=== PATIENT | male | born 1950 | race African-American/Black ===

== ENCOUNTER 2020-01-09 18:48 | Emergency (ER) | payer OTHER ==
[2020-01-09 19:40] LABS: Basophils % 0.5 % (0-1.3); Hematocrit 35.4 % (39.6-49.0); Lymphocytes % 24.2 % (15.3-44.8); MPV 8.1 fL (7.6-11.3)
[2020-01-09 19:43] LABS: Protime INR 1.13
[2020-01-09] MEDS ORDERED: THIAMINE 200 MG/2 ML INJ ONE (20:01)
[2020-01-09] MEDS ORDERED: NA CHLORIDE 0.9% 1,000 ML ONE (20:01)
--- NOTE | 2020-01-09 20:05 | RAD REPORT ---
EXAM DESCRIPTION: CT - Head Brain Wo Cont - 01/09/2020 7:58 pm CLINICAL HISTORY: Alteration of awareness/confusion COMPARISON: None TECHNIQUE: Computed axial tomography of the head was obtained. IV contrast was not requested. All CT scans are performed using dose optimization technique as appropriate and may include automated exposure control or mA/KV adjustment according to patient size. FINDINGS: An intracranial bleed is not seen . The ventricles are normal in caliber. No extra-axial fluid collection is noted. Mild to moderate low-density areas within periventricular, deep and subcortical white matter likely r epresent ischemic changes secondary to small vessel disease. Fluid within the sinuses/ mastoids is not seen. IMPRESSION: No acute intracranial abnormality is seen. If patient's symptoms persist MRI of the bra in would be recommended.
[2020-01-09 20:07] LABS: ALT/SGPT 12 U/L (12-78); AST/SGOT 9 U/L (15-37); Albumin 2.9 g/dL (3.4-5.0); Alkaline Phosphatase 82 U/L (45-117); BUN Blood Urea Nitrogen 12 mg/dL (7-18); Bicarbonate 24 mmol/L (21-32); Bilirubin Direct < 0.1 mg/dL (0-0.2); Bilirubin Total 0.3 mg/dL (0.2-1.0); Glucose Level 173 mg/dL (74-106); Potassium 3.3 mmol/L (3.5-5.1); Protein, Total 6.2 g/dL (6.4-8.2); Sodium Level 141 mmol/L (136-145)
[2020-01-09 20:13] LABS: NT PRO-BNP 115 pg/mL (<125); Troponin (Emerg Dept Use Only) < 0.02 ng/mL (0.0-0.045)
--- NOTE | 2020-01-09 20:44 | ER ---
Nurse's Notes [facility] Name: Paul Khan Age: 69 yrs Sex: Male : 1950 Arrival Date: 01/09/2020 Time: 18:52 Bed 2 Private MD: Diagnosis: Weakness;Hypokalemia;Type 2 diabetes mellitus;Abuse of non-psychoactive substances;Syncope and collapse Presentation: 01/08 19:00 Chief complaint: EMS states: Pt was down on ground in ditch when EMS got on scene, jl7 started feeling bad after taking a hit of synthetic marijuana. Coronavirus screen: Client denies travel out of the [place] in the last 14 days. At this time, the client does not indicate any symptoms associated with coronavirus-19. Ebola Screen: No symptoms or risks identified at this time. Initial Sepsis Screen: Does the patient meet any 2 criteria? No. Patient's initial sepsis screen is negative. Does the patient have a suspected source of infection? No. Patient's initial sepsis screen is negative. Risk Assessment: Do you want to hurt yourself or someone else? Patient reports no desire to harm self or others. Onset of symptoms was January 09, 2020. Care prior to arrival: Medication(s) given: Normal saline infusion, 500 mL, IV initiated. 20 GA, in the left forearm, Glucose check: 170. 19:00 [place] [id number] 19:00 Acuity: TEDDY 3 jl7 Triage Assessment: 19:04 General: Appears in no apparent distress. uncomfortable, Behavior is calm, cooperative, jl7 drowsy. Pain: Denies pain. Historical: - Allergies: 19:04 No Known Allergies; jl7 - Home Meds: 19:04 Metformin Oral [Active]; jl7 - PMHx: 19:04 Diabetes - NIDDM; Hypertension; jl7 - Immunization history:: Adult Immunizations unknown. - Social history:: Smoking status: Patient reports the use of cigarette tobacco products, smokes one-half pack cigarettes per day, Patient uses street drugs, Synthetic Marijuana . - Family history:: not pertinent. Screenin:22 Abuse screen: Denies threats or abuse. Denies injuries from another. Nutritional rr5 screening: No deficits noted. Tuberculosis screening: No symptoms or risk factors identified. Fall Risk IV access (20 points). Gait- Weak (10 pts.). Total Watkins Fall Scale indicates Low Risk Score (25-44 pts). Fall prevention measures have been instituted. Side Rails Up X 2 Placed close to Nursing Station Frequent Obs/Assesments occuring As available Patient and Family Educated on Fall Prevention Program and strategies. Assessment: 19:21 General: Appears in no apparent distress. comfortable, Behavior is calm, cooperative, rr5 appropriate for age. Pain: Denies pain. Neuro: Level of Consciousness is awake, obeys commands, drowsy. Oriented to person, place, time, situation. Cardiovascular: Respiratory: Airway is patent Respiratory effort is even, unlabored, Respiratory pattern is regular, symmetrical. GI: No signs and/or symptoms were reported involving the gastrointestinal system. : No signs and/or symptoms were reported regarding the genitourinary system. EENT: No signs and/or symptoms were reported regarding the EENT system. Derm: Skin is intact, is healthy with good turgor, Skin temperature is warm. Musculoskeletal: Circulation, motion, and sensation intact. Capillary refill < 3 seconds. 20:50 Reassessment: Patient appears in no apparent distress at this time. Patient is alert, rr5 oriented x 3, equal unlabored respirations, skin warm/dry/pink. snacks given with good appetite Patient states symptoms have improved. 21:05 Reassessment: spoke to mitesh sweeney [phone] to arrange a ride ging home. rr5 21:51 Reassessment: Patient appears in no apparent distress at this time. Patient is alert, rr5 oriented x 3, equal unlabored respirations, skin warm/dry/pink. follow up to mitesh for the transport she said 10 minutes more. 22:28 Reassessment: Patient appears in no apparent distress at this time. Patient is alert, rr5 oriented x 3, equal unlabored respirations, skin warm/dry/pink. awake alert vital signs stable. Vital Signs: 19:00 BP 92 / 56; Pulse 78; Resp 16; Temp 97.3; Pulse Ox 96% ; Pain 0/10; jl7 19:23 BP 94 / 54; Pulse 73; Resp 19; Pulse Ox 95% ; rr5 20:22 BP 104 / 58; Pulse 69; Resp 18; Pulse Ox 99% ; rr5 20:50 BP 115 / 70 Supine; Pulse 82; Resp 16; Pulse Ox 99% ; rr5 20:51 BP 119 / 62 Sitting; Pulse 89; Resp 17; Pulse Ox 100% ; rr5 20:52 BP 117 / 65 Standing; Pulse 86; Resp 18; Pulse Ox 100% ; rr5 21:52 BP 114 / 61; Pulse 85; Resp 17; Pulse Ox 99% ; rr5 22:28 BP 113 / 75; Pulse 80; Resp 16; Pulse Ox 99% ; rr5 NIH Stroke Scale Scores: 19:47 NIHSS Score: 0 jonathan ED Course: 18:52 Patient arrived in ED. em1 19:04 Triage completed. jl7 19:04 EKG done, by ED staff, reviewed by Byron Still MD. mh5 19:04 Arm band placed on right wrist. jl7 19:05 Patient has correct armband on for positive identification. Bed in low position. Call 5 light in reach. Side rails up X2. cafeteria monitor on. Pulse ox on. NIBP on. 19:12 Dale Kelley RN is Primary Nurse. rr5 19:14 Byron Still MD is Attending Physician. jonathan 19:58 CT Head Brain wo Cont In Process Unspecified. EDMS 20:05 XRAY Chest (1 view) In Process Unspecified. EDMS 20:57 Urine collected: clean catch specimen, clear. rr5 22:28 No provider procedures requiring assistance completed. IV discontinued, intact, rr5 bleeding controlled, No redness/swelling at site. Pressure dressing applied. Administered Medications: 20:15 Drug: NS 0.9% 1000 ml Route: IV; Rate: 1 bolus; Site: left forearm; rr5 21:30 Follow up: Response: No adverse reaction; IV Status: Completed infusion; IV Intake: rr5 1000ml 20:16 Drug: Thiamine 100 mg Route: IV; Rate: bolus; Site: left forearm; rr5 21:15 Follow up: Response: No adverse reaction; IV Status: Completed infusion rr5 20:40 Drug: Potassium Effervescent Tablet 50 mEq Route: PO; rr5 22:00 Follow up: Response: No adverse reaction rr5 Intake: 21:30 IV: 1000ml; Total: 1000ml. rr5 Output: 22:00 Urine: 500ml (Voided); Total: 500ml. rr5 Outcome: 20:44 Discharge ordered by . jonathan 22:28 Discharged to home via wheelchair, with friend. rr5 22:28 Condition: stable 22:28 Discharge instructions given to patient, Instructed on Demonstrated understanding of instructions, follow-up care. 22:29 Patient left the ED. rr5 NIH Stroke Scale - NIH Stroke Score Date: 01/09/2020 Time: 19:47 Total Score = 0 1a. Level of Consciousness (LOC) - 0(Alert) 1b. Level of Consciousness (LOC) (Year \T\ Age) - 0(Both) 1c. LOC Commands (Open \T\ Closes Eyes/Vessel Scrapper) - 0(Both) 2. Best Gaze (Lateral Gaze Paresis) - 0(Normal) 3. Visual Field Loss - 0(No visual loss) 4. Facial Palsy - 0(Normal) 5a. Left Arm: Motor (10-second hold) - 0(No drift) 5b. Right Arm: Motor (10-second hold) - 0(No drift) 6a. Left Leg: Motor (5-second hold - always test supine) - 0(No drift) 6b. Right Leg: Motor (5-second hold - always test supine) - 0(No drift) 7. Limb Ataxia (finger/nose \T\ heel/kelly - test with eyes open) - 0(Absent) 8. Sensory Loss (pinprick arms/legs/face) - 0(Normal) 9. Best Language: Aphasia (description/naming/reading) - 0(No aphasia) 10. Dysarthria (speech clarity - read or repeat words) - 0(Normal) 11. Extinction and Inattention (visual/tactile/auditory/spatial/personal) - 0(No abnormality) Initials: [facility] Signatures: Dispatcher [employer] Byron Meneses MD MD cha Martinez, Eric Amita Chavira 5 Bar Man, RN RN jl7 Dale Kelley, RN RN rr5
--- NOTE | 2020-01-09 20:45 | EDPHYS ---
Physician Documentation [facility] Name: Paul Khan Age: 69 yrs Sex: Male : 1950 Arrival Date: 01/09/2020 Time: 18:52 Bed 2 Private MD: ED Physician Byron Still HPI: 01/08 19:47 This 69 yrs old Black Male presents to ER via EMS with complaints of weakness after jonathan synthetic pot. 19:47 weak after synthitic marajuana. The patient presents with trouble concentrating. Onset: jonathan The symptoms/episode began/occurred just prior to arrival. Possible causes: CVA or TIA, drug use, alcohol, head injury, low blood sugar, seizure, sepsis. Associated signs and symptoms: Pertinent positives: lightheadedness, weakness. Current symptoms: In the emergency department the patient's symptoms are unchanged from the initial presentation. Patient's baseline: Neuro: alert and fully oriented. Severity of symptoms: At their worst the symptoms were mild moderate in the emergency department the symptoms are unchanged. The patient has not experienced similar symptoms in the past. Historical: - Allergies: 19:04 No Known Allergies; jl7 - Home Meds: 19:04 Metformin Oral [Active]; jl7 - PMHx: 19:04 Diabetes - NIDDM; Hypertension; jl7 - Immunization history:: Adult Immunizations unknown. - Social history:: Smoking status: Patient reports the use of cigarette tobacco products, smokes one-half pack cigarettes per day, Patient uses street drugs, Synthetic Marijuana . - Family history:: not pertinent. ROS: 19:47 Constitutional: Negative for fever, chills, and weight loss, Eyes: Negative for injury, jonathan pain, redness, and discharge, ENT: Negative for injury, pain, and discharge, Neck: Negative for injury, pain, and swelling, Cardiovascular: Negative for chest pain, palpitations, and edema, Respiratory: Negative for shortness of breath, cough, wheezing, and pleuritic chest pain, Abdomen/GI: Negative for abdominal pain, nausea, vomiting, diarrhea, and constipation, Back: Negative for injury and pain, : Negative for injury, bleeding, discharge, and swelling, MS/Extremity: Negative for injury and deformity, Skin: Negative for injury, rash, and discoloration, Psych: Negative for depression, anxiety, suicide ideation, homicidal ideation, and hallucinations, Allergy/Immunology: Negative for hives, rash, and allergies, Endocrine: Negative for neck swelling, polydipsia, polyuria, polyphagia, and marked weight changes, Hematologic/Lymphatic: Negative for swollen nodes, abnormal bleeding, and unusual bruising. 19:47 Neuro: Positive for altered mental status, weakness. Exam: 19:47 Constitutional: This is a well developed, well nourished patient who is awake, alert, jonathan and in no acute distress. Head/Face: Normocephalic, atraumatic. Eyes: Pupils equal round and reactive to light, extra-ocular motions intact. Lids and lashes normal. Conjunctiva and sclera are non-icteric and not injected. Cornea within normal limits. Periorbital areas with no swelling, redness, or edema. ENT: Nares patent. No nasal discharge, no septal abnormalities noted. Tympanic membranes are normal and external auditory canals are clear. Oropharynx with no redness, swelling, or masses, exudates, or evidence of obstruction, uvula midline. Mucous membranes moist. Neck: Trachea midline, no thyromegaly or masses palpated, and no cervical lymphadenopathy. Supple, full range of motion without nuchal rigidity, or vertebral point tenderness. No Meningismus. Chest/axilla: Normal chest wall appearance and motion. Nontender with no deformity. No lesions are appreciated. Cardiovascular: Regular rate and rhythm with a normal S1 and S2. No gallops, murmurs, or rubs. Normal PMI, no JVD. No pulse deficits. Respiratory: Lungs have equal breath sounds bilaterally, clear to auscultation and percussion. No rales, rhonchi or wheezes noted. No increased work of breathing, no retractions or nasal flaring. Abdomen/GI: Soft, non-tender, with normal bowel sounds. No distension or tympany. No guarding or rebound. No evidence of tenderness throughout. Back: No spinal tenderness. No costovertebral tenderness. Full range of motion. Male : Normal genitalia with no discharge or lesions. Skin: Warm, dry with normal turgor. Normal color with no rashes, no lesions, and no evidence of cellulitis. MS/ Extremity: Pulses equal, no cyanosis. Neurovascular intact. Full, normal range of motion. Neuro: Awake and alert, GCS 15, oriented to person, place, time, and situation. Cranial nerves II-XII grossly intact. Motor strength 5/5 in all extremities. Sensory grossly intact. Cerebellar exam normal. Normal gait. Psych: Awake, alert, with orientation to person, place and time. Behavior, mood, and affect are within normal limits. 20:05 ECG was reviewed by the Attending Physician. [facility] Vital Signs: 19:00 BP 92 / 56; Pulse 78; Resp 16; Temp 97.3; Pulse Ox 96% ; Pain 0/10; jl7 19:23 BP 94 / 54; Pulse 73; Resp 19; Pulse Ox 95% ; rr5 20:22 BP 104 / 58; Pulse 69; Resp 18; Pulse Ox 99% ; rr5 20:50 BP 115 / 70 Supine; Pulse 82; Resp 16; Pulse Ox 99% ; rr5 20:51 BP 119 / 62 Sitting; Pulse 89; Resp 17; Pulse Ox 100% ; rr5 20:52 BP 117 / 65 Standing; Pulse 86; Resp 18; Pulse Ox 100% ; rr5 21:52 BP 114 / 61; Pulse 85; Resp 17; Pulse Ox 99% ; rr5 22:28 BP 113 / 75; Pulse 80; Resp 16; Pulse Ox 99% ; rr5 NIH Stroke Scale Scores: 19:47 NIHSS Score: 0 jonathan MDM: 19:14 Patient medically screened. [facility] 19:50 Data reviewed: vital signs, nurses notes, lab test result(s), EKG, radiologic studies, jonathan CT scan, plain films. 19:50 Differential Diagnosis altered mental status. Differential Diagnosis: CVA, electrolyte jonathan abnormality, alcohol intoxication, hypoglycemia, intracranial bleed, overdose, pneumonia, seizure, TIA, volume depletion. Data interpreted: bus monitor: rate is 73 beats/min, rhythm is regular, Pulse oximetry: on room air is 95 %. Test interpretation: by ED physician or midlevel provider: plain radiologic studies. Counseling: I had a detailed discussion with the patient and/or guardian regarding: the historical points, exam findings, and any diagnostic results supporting the discharge/admit diagnosis, lab results. 01/08 19:12 Order name: Acetaminophen; Complete Time: 20:31 rr5 01/08 19:12 Order name: Basic Metabolic Panel; Complete Time: 20:31 rr5 01/08 19:12 Order name: CBC with Diff; Complete Time: 20:31 rr5 01/08 19:12 Order name: ETOH Level; Complete Time: 20:31 [facility] 01/08 19:12 Order name: Hepatic Function; Complete Time: 20:31 [facility] 01/08 19:12 Order name: PT-INR; Complete Time: 20:31 [facility] 01/08 19:12 Order name: Ptt, Activated; Complete Time: 20:31 [facility] 01/08 19:12 Order name: Salicylate; Complete Time: 20:31 [facility] 01/08 19:12 Order name: Urine Drug Screen [facility] 01/08 19:46 Order name: Magnesium; Complete Time: 20:31 [facility] 01/08 19:46 Order name: NT PRO-BNP; Complete Time: 20:31 [facility] 01/08 19:46 Order name: Troponin (emerg Dept Use Only); Complete Time: 20:31 [facility] 01/08 21:41 Order name: Urine Dipstick--Ancillary (enter results) [facility] 01/08 21:42 Order name: Urine Dipstick-Ancillary [facility] 01/08 19:12 Order name: EKG; Complete Time: 19:13 [facility] 01/08 19:12 Order name: EKG - Nurse/Tech; Complete Time: 19:21 [facility] 01/08 19:12 Order name: IV Saline Lock; Complete Time: 19:21 [facility] 01/08 19:12 Order name: Labs collected and sent; Complete Time: 19:21 [facility] 01/08 19:12 Order name: Urine Dipstick-Ancillary (obtain specimen); Complete Time: 20:57 [facility] 01/08 19:46 Order name: XRAY Chest (1 view) [facility] 01/08 19:46 Order name: Cardiac monitoring; Complete Time: 19:47 [facility] 01/08 19:46 Order name: O2 Per Protocol; Complete Time: 19:47 [facility] 01/08 19:46 Order name: O2 Sat Monitoring; Complete Time: 19:47 [facility] 01/08 19:46 Order name: CT Head Brain wo Cont; Complete Time: 20:31 [facility] 01/08 20:33 Order name: Orthostatics; Complete Time: 20:56 [facility] EC:05 Rate is 77 beats/min. Rhythm is regular. QRS [place] is Normal. OR interval is normal. QRS jonathan interval is normal. QT interval is normal. No Q waves. T waves are Normal. No ST changes noted. Clinical impression: NSR w/ Non-specific ST/T Changes and No evidence of ischemia. Interpreted by me. Reviewed by me. Administered Medications: 20:15 Drug: NS 0.9% 1000 ml Route: IV; Rate: 1 bolus; Site: left forearm; rr5 21:30 Follow up: Response: No adverse reaction; IV Status: Completed infusion; IV Intake: rr5 1000ml 20:16 Drug: Thiamine 100 mg Route: IV; Rate: bolus; Site: left forearm; rr5 21:15 Follow up: Response: No adverse reaction; IV Status: Completed infusion rr5 20:40 Drug: Potassium Effervescent Tablet 50 mEq Route: PO; rr5 22:00 Follow up: Response: No adverse reaction rr5 Disposition: 01/09/20 20:44 Discharged to Home. Impression: Weakness, Hypokalemia, Type 2 diabetes mellitus, Abuse of non-psychoactive substances, Syncope and collapse. - Condition is Stable. - Discharge Instructions: Type 2 Diabetes Mellitus, Diagnosis, Adult, Potassium Content of Foods, Near-Syncope, Substance Use Disorder, Weakness, Fatigue, Near-Syncope, [id number], Weakness, [id number]-kf-Kknx, Aspirin and Your Heart, Type 2 Diabetes Mellitus, Diagnosis, Adult, [id number], Hypokalemia. - Medication Reconciliation Form, Thank You Letter, Antibiotic Education, Prescription Opioid Use form. - Follow up: Private Physician; When: 2 - 3 days; Reason: Recheck today's complaints, Continuance of care, Re-evaluation by your physician. - Problem is new. - Symptoms have improved. NIH Stroke Scale - NIH Stroke Score Date: 01/09/2020 Time: 19:47 Total Score = 0 1a. Level of Consciousness (LOC) - 0(Alert) 1b. Level of Consciousness (LOC) (Year \T\ Age) - 0(Both) 1c. LOC Commands (Open \T\ Closes Eyes/Hospital Housekeeper) - 0(Both) 2. Best Gaze (Lateral Gaze Paresis) - 0(Normal) 3. Visual Field Loss - 0(No visual loss) 4. Facial Palsy - 0(Normal) 5a. Left Arm: Motor (10-second hold) - 0(No drift) 5b. Right Arm: Motor (10-second hold) - 0(No drift) 6a. Left Leg: Motor (5-second hold - always test supine) - 0(No drift) 6b. Right Leg: Motor (5-second hold - always test supine) - 0(No drift) 7. Limb Ataxia (finger/nose \T\ heel/kelly - test with eyes open) - 0(Absent) 8. Sensory Loss (pinprick arms/legs/face) - 0(Normal) 9. Best Language: Aphasia (description/naming/reading) - 0(No aphasia) 10. Dysarthria (speech clarity - read or repeat words) - 0(Normal) 11. Extinction and Inattention (visual/tactile/auditory/spatial/personal) - 0(No abnormality) Initials: jonathan Signatures: Dispatcher [employer] EDMS Byron Still MD MD cha Leal, Jahala RN RN jl7 Dale Kelley, AREN RN rr5 Corrections: (The following items were deleted from the chart) 22:29 20:44 01/09/2020 20:44 Discharged to Home. Impression: Weakness; Hypokalemia; rr5 Type 2 diabetes mellitus; Abuse of non-psychoactive substances; Syncope and collapse. Condition is Stable. Forms are Medication Reconciliation Form, Thank You Letter, Antibiotic Education, Prescription Opioid Use. Follow up: Private Physician; When: 2 - 3 days; Reason: Recheck today's complaints, Continuance of care, Re-evaluation by your physician. Problem is new. Symptoms have improved. jonathan
[2020-01-09] MEDS ORDERED: POTASSIUM 25 MEQ EFFERV TAB ONE (20:49)
[2020-01-09 21:14] LABS: Barbiturates NEGATIVE (NEGATIVE); Benzodiazepines NEGATIVE (NEGATIVE); Cocaine POSITIVE (NEGATIVE); METHAMPHETAM NEGATIVE (NEGATIVE); Methadone NEGATIVE (NEGATIVE); Opiates NEGATIVE (NEGATIVE); Phencyclidine NEGATIVE (NEGATIVE); THC Cannibis POSITIVE (NEGATIVE)
--- NOTE | 2020-01-09 21:24 | RAD REPORT ---
EXAM DESCRIPTION: Javed Single View01/09/2020 8:05 pm CLINICAL HISTORY: Cough COMPARISON: none FINDINGS: 12 millimeter nodular opacity right lung base Remainder of the lungs appear clear of acute infiltrate. Heart is normal size IMPRESSION: 12 millimeter nodular opacity right base may represent a nipple shadow or pulmonary nodu le. PA and lateral chest series with a right nipple marker recommended
[2020-01-09 21:47] LABS: Urine Blood NEGATIVE (NEG); Urine Glucose NEGATIVE (NEG); Urine Protein NEGATIVE (NEG); Urine Specific Gravity >1.030 (1.005-1.030); Urine pH 5.5 (5.0-7.0)
[2020-01-09 22:57] VITALS: TEMP 97.3
[2020-01-09 23:05] VITALS: O2SAT 99
[2020-01-09 23:07] VITALS: BP 113/75
--- NOTE | 2020-01-10 08:20 | EKG ---
Test Date: 2020-01-09 Test Time: 19:04:13 Data Communications Analyst: FARHAT MEASUREMENT RESULTS: Intervals: Rate: 77 OK: 158 QRSD: 98 QT: 392 QTc: 443 [place]: P: 39 OK: 158 QRS: 56 T: 63 INTERPRETIVE STATEMENTS: Normal sinus rhythm with sinus arrhythmia Nonspecific T wave abnormality Abnormal ECG No previous ECG available for comparison Electronically Signed On 01-10-20 08:19:20 CDT by Derrick Mcgee
--- OUTSIDE RECORDS SUMMARY | 2020-01-14 21:23 | XMS REPORT | Clinical Summary ---
:1950 Author Organization [facility] Address [address] [place] [address] Care Team Providers Name Role Phone [facility] Primary Care Provider Unavailable Allergies No Known Active Allergies Medications Medication Sig Dispensed Refills Start Date End Date Status aspirin (ECOTRIN) Take 1 tablet 30 tablet 0 05/01/2019 020 Discontinued 81 MG enteric (81 mg total) coated tablet by mouth daily for 30 days. atorvastatin Take 1 tablet 30 tablet 0 04/30/2019 04/30/2019 D iscontinued (LIPITOR) 40 MG (40 mg total) tablet by mouth nightly for 30 days. aspirin (ECOTRIN) Take 1 tablet 30 tablet 0 05/01/2019 020 81 MG enteric (81 mg total) coated tablet by mouth daily for 30 days. atorvastatin Take 1 tablet 30 tablet 0 04/30/2019 05/30/2019 E xpired (LIPITOR) 40 MG (40 mg total) tablet by mouth nightly for 30 days. Active Problems Problem Noted Date TIA (transient ischemic attack) 04/28/2019 Encounters Date Type Specialty Care Team Description 04/29/2019 - Hospital Encounter General Internal Negin Last TIA ( transient 04/30/2019 Medicine MD Risa ischemic attack ) (Primary Dx) after 01/13/2019 Surgical History Surgery Date Site/Laterality Comments FRACTURE SURGERY At the lt arm Social History Tobacco Use Types Packs/Day Years Used Date Never Smoker Smokeless Tobacco: Never Used Alcohol Use Drinks/Week oz/Week Comments Yes 1 Glasses of wine 1.0 Alcohol Habits Answer Date Recorded How often do you have a drink containing alcohol? Never 04/29/2019 How many drinks containing alcohol do you have on a typical Not asked day when you are drinking? How often do you have six or more drinks on one occasion? No t asked Sex Assigned at Date Recorded Not on file Last Filed Vital Signs Vital Sign Reading Time Taken Comments Blood Pressure 158/72 04/30/2019 8:08 AM LANGUAGE SPECIALIST Pulse 64 04/30/2019 8:08 AM LANGUAGE SPECIALIST Temperature 36.2 C (97.2 F) 04/30/2019 8:08 AM LANGUAGE SPECIALIST Respiratory Rate 18 04/30/2019 8:08 AM LANGUAGE SPECIALIST Oxygen Saturation 98% 04/30/2019 8:08 AM LANGUAGE SPECIALIST Inhaled Oxygen Concentration - - Weight 107 kg (235 lb 1.6 oz) 04/29/2019 3:01 AM LANGUAGE SPECIALIST Height 185.4 cm (6' 1") 04/29/2019 3:01 AM LANGUAGE SPECIALIST Body Mass Index 31.02 04/29/2019 3:01 AM LANGUAGE SPECIALIST Plan of Treatment Health Maintenance Due Date Last Done Comments COLONOSCOPY SCREENING 2000 SHINGLES VACCINES (#1) 2000 65+ PNEUMOCOCCAL VACCINE (1 of 1 - PPSV23) 09/01/2015 INFLUENZA VACCINE 11/08/2019 Procedures Procedure Name Priority Date/Time Associated Comments Diagnosis POC GLUCOSE Routine 04/30/2019 11:14 Results for this AM LANGUAGE SPECIALIST procedure are i n the results section. POC GLUCOSE Routine 04/30/2019 8:04 Results for this AM LANGUAGE SPECIALIST procedure are i n the results section. VITAMIN B1 LEVEL, WHOLE Routine 04/30/2019 4:15 Results for this BLOOD AM LANGUAGE SPECIALIST procedure are i n the results section. POC GLUCOSE Routine 04/29/2019 9:23 Results for this PM LANGUAGE SPECIALIST procedure are i n the results section. MRI BRAIN W WO CONTRAST Routine 04/29/2019 7:40 Results for this PM LANGUAGE SPECIALIST procedure are i n the results section. MRA NECK WO CONTRAST Routine 04/29/2019 7:19 Res ults for this PM LANGUAGE SPECIALIST procedure are i n the results section. MRA HEAD WO CONTRAST Routine 04/29/2019 7:19 Res ults for this PM LANGUAGE SPECIALIST procedure are i n the results section. POC GLUCOSE Routine 04/29/2019 4:10 Results for this PM LANGUAGE SPECIALIST procedure are i n the results section. URINE DRUGS OF ABUSE Routine 04/29/2019 3:30 Res ults for this SCREEN PM LANGUAGE SPECIALIST procedure are i n the results section. TTE COMPLETE, WO Routine 04/29/2019 2:30 TIA (transient Resul ts for this CONTRAST, W AGITATED PM LANGUAGE SPECIALIST ischemic attack) pro cedure are in SALINE ([id number]) the results section. VITAMIN B12 LEVEL Routine 04/29/2019 1:54 Result s for this PM LANGUAGE SPECIALIST procedure are i n the results section. POC GLUCOSE Routine 04/29/2019 11:49 Results for this AM LANGUAGE SPECIALIST procedure are i n the results section. POC GLUCOSE Routine 04/29/2019 7:59 Results for this AM LANGUAGE SPECIALIST procedure are i n the results section. ESTIMATED GFR Routine 04/29/2019 5:03 Results fo r this AM LANGUAGE SPECIALIST procedure are i n the results section. BILIRUBIN DIRECT Routine 04/29/2019 5:03 Results for this AM LANGUAGE SPECIALIST procedure are i n the results section. AMYLASE LEVEL Routine 04/29/2019 5:03 Results fo r this AM LANGUAGE SPECIALIST procedure are i n the results section. B NATRIURETIC PEPTIDE Routine 04/29/2019 5:03 Re sults for this AM LANGUAGE SPECIALIST procedure are i n the results section. CREATINE KINASE, TOTAL Routine 04/29/2019 5:03 R esults for this (CPK) AM LANGUAGE SPECIALIST procedure are i n the results section. COMPREHENSIVE METABOLIC Routine 04/29/2019 5:03 Results for this PANEL AM LANGUAGE SPECIALIST procedure are i n the results section. HEMOGLOBIN A1C Routine 04/29/2019 5:03 Results f or this AM LANGUAGE SPECIALIST procedure are i n the results section. LIPASE LEVEL Routine 04/29/2019 5:03 Results for this AM LANGUAGE SPECIALIST procedure are i n the results section. LIPID PANEL Routine 04/29/2019 5:03 Results for this AM LANGUAGE SPECIALIST procedure are i n the results section. MAGNESIUM LEVEL Routine 04/29/2019 5:03 Results for this AM LANGUAGE SPECIALIST procedure are i n the results section. PHOSPHORUS LEVEL Routine 04/29/2019 5:03 Results for this AM LANGUAGE SPECIALIST procedure are i n the results section. PREALBUMIN LEVEL Routine 04/29/2019 5:03 Results for this AM LANGUAGE SPECIALIST procedure are i n the results section. THYROID STIMULATING Routine 04/29/2019 5:03 Resu lts for this HORMONE AM LANGUAGE SPECIALIST procedure are i n the results section. T4, FREE Routine 04/29/2019 5:03 Results for this AM LANGUAGE SPECIALIST procedure are i n the results section. URIC ACID LEVEL Routine 04/29/2019 5:03 Results for this AM LANGUAGE SPECIALIST procedure are i n the results section. PARTIAL THROMBOPLASTIN Routine 04/29/2019 5:03 R esults for this TIME (PTT) AM LANGUAGE SPECIALIST procedure are i n the results section. PROTHROMBIN TIME WITH Routine 04/29/2019 5:03 Re sults for this INR AM LANGUAGE SPECIALIST procedure are i n the results section. HC COMPLETE BLD COUNT Routine 04/29/2019 5:03 Re sults for this W/AUTO DIFF AM LANGUAGE SPECIALIST procedure are i n the results section. after 01/13/2019 Results POC glucose (04/30/2019 11:14 AM LANGUAGE SPECIALIST)Only the most recent of6 resultswithin the time period is included. Pathologist Sig nature POC glucose 163 (H) 65 - 99 mg/dL [place] [facility] Comment: [facility] Planning Advisor Name: Karen Alas Device ID: [id number] Chartable: RN Notified Specimen Performing Organization Address [facility] Phon e Number [facility] DEPARTMENT OF PATHOLOGY [address] [facility] [address] AND GENOMIC MEDICINE [facility] [address] [facility] [place] [address] [facility] Vitamin B1 level, whole blood (04/30/2019 4:15 AM LANGUAGE SPECIALIST) Vitamin B1 229 (H) 70 - 180 [facility] Comment: nmol/L INTERPRETIVE INFORMATION: Vitamin B1, Whole Blood This assay measures the concentration of thiamine diph osphate (TDP), the primary active form of vitamin B1. Approxim ately 90 percent of vitamin B1 present in whole blood is TDP. T hiamine and thiamine monophosphate, which comprise the remaining 1 0 percent, are not measured. Test developed and characteristics determined by [facility]. See Compliance Statement B: [facility]/ CS Performed by [facility], [address] [place] [address] [email or web address], Mandeep Benitez MD, Lab. Director Specimen Plasma specimen Performing Organization Address [facility] Phon e Number [facility] [address] [place] [address] [facility] [address] [place] [address] MRI Brain W Wo Contrast (04/29/2019 7:40 PM LANGUAGE SPECIALIST) Specimen Narrative Performed At This result has an attachment that is no t available. EXAMINATION: MRI BRAIN W WO CONTRAST [facility] CLINICAL HISTORY: EVAL FOR STROKE COMPARISON: None. IMAGING DEVICE: 3.0 Temitope MR. 3-D reconstructions were processed off-line TECHNIQUE: Multiplanar and multisequence MRI imaging o f the brain obtained. CONTRAST: No IV contrast administered. FINDINGS: CEREBRUM: *No evident edema, hemorrhage, mass, midline shift or acute infarction *No evidence of inappropriate atrophy. CEREBELLUM: *No evident edema, hemorrhage, mass, midline shift or acute infarction *No evidence of inappropriate atrophy. BRAINSTEM: *No evident edema, hemorrhage, mass, midline shift or acute infarction *No evidence of inappropriate atrophy. CSF SPACES: *Ventricles, cisterns, and sulci are appropriate for a ge. *No hydrocephalus, subarachnoid hemorrhage, or mass. VASCULAR: *Limited assessment with no evident abno rmalities of [place] of [place] and dural sinuses. SKULL: *No focal lesions, mass, displaced fractures or other visible lesion. SINUSES: *Limited views demonstrate no mass, significant mucosa l thickening or fluid. ORBITS: *Limited views shows no focal lesion fracture or other visible lesion. OTHER: *Moderate mucosal thickening seen in the left mastoid air cells and middle ear. IMPRESSION: 1. Exam shows no evidence of acute intracranial abnorm alities 2. Moderate mucosal thickening seen in t he left mastoid air cells and middle ear. Correlate clinically for left otomastoiditis [facility]-[id number] Procedure Note Interface, Radiology Results Incoming - 04/29/2019 7:56 PM LANGUAGE SPECIALIST EXAMINATION: MRI BRAIN W WO CONTRAST CLINICAL HISTORY: EVAL FOR STROKE COMPARISON: None. IMAGING DEVICE: 3.0 Temitope MR. 3-D recons tructions were processed off-line TECHNIQUE: Multiplanar and multisequence MRI imaging of the brain obtained. CONTRAST: No IV contrast administered. FINDINGS: CEREBRUM: *No evident edema, hemorrhage, mass, mid line shift or acute infarction *No evidence of inappropriate atrophy. CEREBELLUM: *No evident edema, hemorrhage, mass, mid line shift or acute infarction *No evidence of inappropriate atrophy. BRAINSTEM: *No evident edema, hemorrhage, mass, mid line shift or acute infarction *No evidence of inappropriate atrophy. CSF SPACES: *Ventricles, cisterns, and sulci are javi ropriate for age. *No hydrocephalus, subarachnoid hemorrha ge, or mass. VASCULAR: *Limited assessment with no evident abno rmalities of [place] of [place] and dural sinuses. SKULL: *No focal lesions, mass, displaced fract ures or other visible lesion. SINUSES: *Limited views demonstrate no mass, sign ificant mucosal thickening or fluid. ORBITS: *Limited views shows no focal lesion fra cture or other visible lesion. OTHER: *Moderate mucosal thickening seen in the left mastoid air cells and middle ear. IMPRESSION: 1. Exam shows no evidence of acute intra cranial abnormalities 2. Moderate mucosal thickening seen in t he left mastoid air cells and middle ear. Correlate clinically for left otomastoiditis [facility]-[id number] Performing Organization Address City/State/ZIP Code Phon e Number [facility] [address] [place] [address] MRA Neck Wo Contrast (04/29/2019 7:19 PM LANGUAGE SPECIALIST) Specimen Narrative Performed At EXAMINATION: MRA NECK WO CONTRAST [facility] CLINICAL HISTORY: EVAL FOR STENOSIS COMPARISON: None. IMAGING DEVICE: 3.0 Temitope MR. 3-D reconstructions were processed off-line TECHNIQUE: Multiplanar and multisequence MRA imaging o f the neck obtained. CONTRAST: No IV contrast administered. FINDINGS: RIGHT: *COMMON CAROTID ARTERY: Normal, no proximal flow-limit ing stenosis, occlusion, dissection, aneurysms, pseudoaneurysms or v ascular malformations. *CAROTID BIFURCATION AND ICA: Normal, no proximal flow -limiting stenosis, occlusion, dissection, aneurysms, pseudoaneu rysms or vascular malformations. *VERTEBRAL ARTERY: Normal, no proximal flow-limiting s tenosis, occlusion, dissection, aneurysms, pseudoaneurysms or v ascular malformations. LEFT: *COMMON CAROTID ARTERY: Normal, no proximal flow-limit ing stenosis, occlusion, dissection, aneurysms, pseudoaneurysms or v ascular malformations. *CAROTID BIFURCATION AND ICA: Normal, no proximal flow -limiting stenosis, occlusion, dissection, aneurysms, pseudoaneu rysms or vascular malformations. *VERTEBRAL ARTERY: Normal, no proximal flow-limiting s tenosis, occlusion, dissection, aneurysms, pseudoaneurysms or v ascular malformations. OTHER: None IMPRESSION:. No evidence of carotid or vertebral flow- limiting stenosis, occlusion, aneurysms or AVMs [facility]-[id number] Procedure Note Interface, Radiology Results Incoming - 04/29/2019 7:57 PM LANGUAGE SPECIALIST EXAMINATION: MRA NECK WO CONTRAST CLINICAL HISTORY: EVAL FOR STENOSIS COMPARISON: None. IMAGING DEVICE: 3.0 Temitope MR. 3-D recons tructions were processed off-line TECHNIQUE: Multiplanar and multisequence MRA imaging of the neck obtained. CONTRAST: No IV contrast administered. FINDINGS: RIGHT: *COMMON CAROTID ARTERY: Normal, no proxi mal flow-limiting stenosis, occlusion, dissection, aneurysms, pseudoaneurysms or vascular malformations. *CAROTID BIFURCATION AND ICA: Normal, no proximal flow-limiting stenosis, occlusion, dissection, aneurysms, pseudoaneurysms or vascular malformations. *VERTEBRAL ARTERY: Normal, no proximal f low-limiting stenosis, occlusion, dissection, aneurysms, pseudoaneurysms or vascular malformations. LEFT: *COMMON CAROTID ARTERY: Normal, no proxi mal flow-limiting stenosis, occlusion, dissection, aneurysms, pseudoaneurysms or vascular malformations. *CAROTID BIFURCATION AND ICA: Normal, no proximal flow-limiting stenosis, occlusion, dissection, aneurysms, pseudoaneurysms or vascular malformations. *VERTEBRAL ARTERY: Normal, no proximal f low-limiting stenosis, occlusion, dissection, aneurysms, pseudoaneurysms or vascular malformations. OTHER: None IMPRESSION:. No evidence of carotid or v ertebral flow-limiting stenosis, occlusion, aneurysms or AVMs [facility]-[id number] Performing Organization Address City/State/ZIP Code Phon e Number [facility] [address] [place] [address] MRA Head Wo Contrast (04/29/2019 7:19 PM LANGUAGE SPECIALIST) Specimen Narrative Performed At EXAMINATION: MRA HEAD WO CONTRAST [facility] CLINICAL HISTORY: EVAL FOR STENOSIS COMPARISON: None. IMAGING DEVICE: 3.0 Temitope MR. 3-D reconstructions were processed off-line TECHNIQUE: Multiplanar and multisequence MRA imaging o f the brain obtained. CONTRAST: No IV contrast administered. FINDINGS: RIGHT: ICA: No evident proximal flow-limiting stenosis, occlu ruchi, dissection, aneurysms, or AVM. CRYSTAL: No evident proximal flow-limiting stenosis, occlu ruchi, dissection, aneurysms, or AVM. MCA: No evident proximal flow-limiting stenosis, occlu ruchi, dissection, aneurysms, or AVM. GROCERY STOCK CLERK: No evident proximal flow-limiting stenosis, occlu ruchi, dissection, aneurysms, or AVM. VERTEBRAL ARTERY: No evident proximal flow-limiting st enosis, occlusion, dissection, aneurysms, or AVM. LEFT: ICA: No evident proximal flow-limiting stenosis, occlu ruchi, dissection, aneurysms, or AVM. CRYSTAL: No evident proximal flow-limiting stenosis, occlu ruchi, dissection, aneurysms, or AVM. MCA: No evident proximal flow-limiting stenosis, occlu ruchi, dissection, aneurysms, or AVM. GROCERY STOCK CLERK: No evident proximal flow-limiting stenosis, occlu ruchi, dissection, aneurysms, or AVM. VERTEBRAL ARTERY: No evident proximal flow-limiting st enosis, occlusion, dissection, aneurysms, or AVM. BASILAR ARTERY: No evident proximal flow-limiting sten osis, occlusion, dissection, aneurysms, or AVM. OTHER: None IMPRESSION: Exam shows no evidence of proximal intracr anial arterial flow-limiting stenosis, occlusion, aneur ysm or AVM [id number] Procedure Note Interface, Radiology Results Incoming - 04/29/2019 7:38 PM LANGUAGE SPECIALIST EXAMINATION: MRA HEAD WO CONTRAST CLINICAL HISTORY: EVAL FOR STENOSIS COMPARISON: None. IMAGING DEVICE: 3.0 Temitope MR. 3-D recons tructions were processed off-line TECHNIQUE: Multiplanar and multisequence MRA imaging of the brain obtained. CONTRAST: No IV contrast administered. FINDINGS: RIGHT: ICA: No evident proximal flow-limiting s tenosis, occlusion, dissection, aneurysms, or AVM. CRYSTAL: No evident proximal flow-limiting s tenosis, occlusion, dissection, aneurysms, or AVM. MCA: No evident proximal flow-limiting s tenosis, occlusion, dissection, aneurysms, or AVM. GROCERY STOCK CLERK: No evident proximal flow-limiting s tenosis, occlusion, dissection, aneurysms, or AVM. VERTEBRAL ARTERY: No evident proximal fl ow-limiting stenosis, occlusion, dissection, aneurysms, or AVM. LEFT: ICA: No evident proximal flow-limiting s tenosis, occlusion, dissection, aneurysms, or AVM. CRYSTAL: No evident proximal flow-limiting s tenosis, occlusion, dissection, aneurysms, or AVM. MCA: No evident proximal flow-limiting s tenosis, occlusion, dissection, aneurysms, or AVM. GROCERY STOCK CLERK: No evident proximal flow-limiting s tenosis, occlusion, dissection, aneurysms, or AVM. VERTEBRAL ARTERY: No evident proximal fl ow-limiting stenosis, occlusion, dissection, aneurysms, or AVM. BASILAR ARTERY: No evident proximal flow -limiting stenosis, occlusion, dissection, aneurysms, or AVM. OTHER: None IMPRESSION: Exam shows no evidence of pr oximal intracranial arterial flow- limiting stenosis, occlusion, aneurysm or AVM [id number] Performing Organization Address City/State/ZIP Code Phon e Number [facility] [address] [place] [address] Urine drugs of abuse screen (04/29/2019 3:30 PM LANGUAGE SPECIALIST) Amphetamine screen, Negative [place] urine [facility] Barbiturate screen, Negative [place] urine [facility] Benzodiazepine Negative [place] screen, urine [facility] Cocaine screen, urine Negative [facility] Methadone metabolite Negative [place] (EDDP), urine [facility] Opiates screen, urine Negative [facility] Phencyclidine screen, Negative [place] urine [facility] Tricyclic screen, Negative [place] urine [facility] Cannabinoid screen, Positive (A) [place] urine Comment: [facility] Drug screen minimum concentration of detectability [facility] Amphetamines 1000 ng/mL Barbiturates 200 ng/mL Benzodiazepines 300 ng/mL Cocaine 300 ng/mL Methadone 300 ng/mL Opiates 300 ng/mL Phencyclidine 25 ng/mL Cannabinoids 50 ng/mL Tricyclics 1000 ng/mL Results are from screening tests and should only be used for medical evaluation. Drug testing for legal purposes requires definitive (or confirmatory) testing methods, which are available upon request. Contact the laboratory if definitive testing is requir ed. Specimen Urine Performing Organization Address City/State/ZIP Code Phon e Number [facility] DEPARTMENT OF PATHOLOGY [address] [facility] [address] AND GENOMIC MEDICINE [facility] [address] [facility] [place] [address] [facility] Echocardiogram complete w contrast and 3D if needed (04/29/2019 2:30 PM LANGUAGE SPECIALIST) Pathologist Sig nature Ao Root Diameter 3.61 cm [facility] AoV Area, Vmax 1.99 cm2 [facility] AoV Area, VTI 1.99 cm2 [facility] AoV Mean PG 5.39 mmHg [facility] AoV Peak PG 9.05 mmHg [facility] AoV Vmax 1.50 m/s HM [facility] AoV VTI 0.31 m [facility] IVS,d 0.89 cm HM [facility] IVS/LVPW,2D 0.95 HM [facility] Left Atrium Dimension Anterior 2.66 cm HM [facility] LA Area d A4C 16.07 cm2 HM [facility] LV,d 5.83 cm [facility] LV EF,2D 57.87 % HM [facility] LV,s 4.37 cm HM [facility] LVOT area 3.49 cm2 HM [facility] LVOT Diam,S 2.11 cm HM [facility] LVOT Vmax 0.86 m/s HM [facility] LVOT VTI 0.18 m HM [facility] LVPWD,d 0.94 cm HM [facility] PV Pk Grad 7.36 mmHg HM [facility] PV VMAX 1.36 m/s HM [facility] TR Vpeak 1.64 mm/s HM [facility] MV E A ratio 1.32 HM [facility] TR pk grad 10.04 mmHg HM [facility] E wave decelartion time 313.92 msec HM [facility] MV Peak A Rohith 0.65 m/s HM [facility] MV valve area p 1/2 method 2.42 cm2 HM [facility] MV Peak E Rohith 0.86 m/s HM [facility] MV stenosis pressure 1/2 time 91.04 ms HM [facility] AV LVOT peak gradient 2.93 mmHg HM [facility] Ascending aorta 3.11 cm HM [facility] Ao Root Diameter 3.61 cm HM [facility] MV mean gradient 1.40 mmHg HM [facility] LV SYS VOL 86.47 ml HM [facility] LV ROJAS VOL 168.86 ml HM [facility] LV SV Teich 2D 82.39 ml HM [facility] LV Vol s Teich PSAX 86.47 ml HM [facility] MR peak grad 3.33 mmHg HM [facility] MV Vmax 0.91 m HM [facility] MV VTI Tips 0.29 m HM [facility] AoV Vmn 1.11 HM [facility] LV FS Teich 2D 25.04 HM [facility] MV AE ratio 0.76 HM [facility] LV FS Cube 2D 25.04 HM [facility] LVOT Vmn 0.56 HM [facility] Aov area Vmn 1.77 cm2 HM [facility] LA Vol d MOD A4C 42.16 ml HM [facility] LVOT mean grad 1.45 mmHg HM [facility] MAX Pred HR 151.34 HM [facility] 85 of MPHR 128.64 HM [facility] Calc MPHR 151.34 bpm HM [facility] LV SV Cube 2D 114.96 ml HM [facility] LV vol d cube 2D 198.64 ml HM [facility] LV vol s cube 2D 83.68 ml HM [facility] MV Decel slope 2.73 m/s2 HM [facility] Pred Exer Dur R1 7.38 HM [facility] Pred METS R1 7.70 HM [facility] Velocity Ratio (V1/V2) 0.57 m/s HM [facility] EF 48.79 % HM [facility] E/A ratio 1.32 HM [facility] Specimen Narrative Performed At This result has an attachment that is no t available. Left ventricular systolic function is normal. [facility] Left Ventricular ejection fraction is 55 - 60%. Spectral Doppler shows impaired relaxation pattern of left ventricular diastolic filling. Normal left ventricular wall thickness and regional wall motion. Normal right ventricular size, wall thickness and g lobal function LA size is normal Trace tricuspid valve regurgitation There is moderate sclerosis of the aortic valve pb flets. No pericardial effusion seen Performing Organization Address City/[facility]/ZIP Code Phon e Number [facility] [address] [place] [address], Vitamin B12 level (04/29/2019 1:54 PM LANGUAGE SPECIALIST) Pathologist [facility] Vitamin B12 355 211 - 946 [facility] Comment: pg/mL HOSPITAL Significant overlap exists between normal and deficien cy states. However, most patients with deficiencies will have Ser um B12 <200 pg/mL. Specimen Serum Performing Organization Address [facility] Phon e Number [facility] DEPARTMENT OF PATHOLOGY AND [address] [place], [place] [address] [facility] [address] [place] [address] Estimated GFR (04/29/2019 5:03 AM LANGUAGE SPECIALIST) [facility] Estimated GFR >=90 mL/min/1.73 [facility] Comment: m2 [place] Catergory Units Interpretation HOS PITAL G1 >=90 Normal or high G2 60-89 Mildly decreased G3a 45-59 Mildly to moderately decreas ed G3b 30-44 Moderately to severely decre ased G4 15-29 Severely decreased G5 <15 Kidney failure The eGFR was calculated using the Chronic Kidney Disea se Epidemiology Collaboration (CKD-EPI) equation. Interpretation is based on recommendations of the National Kidney Foundation-Kidney Disease Outcomes César lity Initiative (NKF-KDOQI) published in 2014. Corrected result; previously reported as 89 on 020 at 06:02 by I/AUT Specimen Blood Performing Organization Address [facility] Code Phon e Number [facility] DEPARTMENT OF PATHOLOGY [address] [facility] [place] [address] AND [facility] [address] [facility] [place], [place] [address] [facility] Partial thromboplastin time, activated (04/29/2019 5:03 AM LANGUAGE SPECIALIST) Pathologist [facility] PTT 30.4 23.0 - 36.0 [facility] Comment: [facility] PTT therapeutic range for unfractionated heparin is HOSPITAL 61.0-112.0 seconds which corresponds to Anti-Xa 0.3-0.7 U/ml. Specimen Blood Performing Organization Address City/[facility]/ZIP Code Phon e Number [facility] DEPARTMENT OF PATHOLOGY [address] [place] [address] Prothrombin time with INR (04/29/2019 5:03 AM LANGUAGE SPECIALIST) Prothrombin time 13.8 11.5 - 14.5 [facility] INR 1.1 [place] Comment: [facility] International Normalized Ratio (INR) is a therapeu [facility] monitoring tool for patients who are stable on oral anticoagulant therapy. An INR of 2.0-3.0 is suggested for deep vein thrombosis/pulmonary embolism. Specimen Blood Performing Organization Address [facility] Phon e Number [facility] DEPARTMENT OF PATHOLOGY [address] [place] [address] CBC with platelet and differential (04/29/2019 5:03 AM LANGUAGE SPECIALIST) Pathologist [facility] WBC 10.7 4.5 - 11.0 k/uL [facility] RBC 5.52 4.40 - 6.00 [facility] m/uL [facility] HGB 12.4 (L) 14.0 - 18.0 [facility] g/dL [facility] HCT 39.2 (L) 41.0 - 51.0 % [facility] MCV 71.0 (L) 82.0 - 100.0 fL [facility] MCH 22.5 (L) 27.0 - 34.0 pg [facility] MCHC 31.6 31.0 - 37.0 [facility] - SD 36.9 (L) 37.0 - 55.0 fL [facility] MPV 9.9 6.9 - 11.0 fL [facility] Platelet count 256 150 - 400 K/uL [facility] Nucleated RBC 0.00 /100 WBC [facility] Neutrophils 62.2 39.0 - 69.0 % [facility] Lymphocytes 29.6 25.0 - 45.0 % [facility] Monocytes 6.0 0.0 - 10.0 % [facility] Eosinophils 1.5 0.0 - 5.0 % [facility] Basophils 0.4 0.0 - 1.0 % [facility] Immature granulocytes 0.3 0.0 - 1.0 % [facility] Specimen Blood Performing Organization Address City/[facility] Phon e Number [facility] DEPARTMENT OF PATHOLOGY [address] [place] [address] X [facility] AND [place] [address] HOSPITAL Uric acid level (04/29/2019 5:03 AM LANGUAGE SPECIALIST) Pathologist Sig nature Uric acid 5.4 3.4 - 7.0 mg/dL [facility] [place] AND [facility]PITAL Specimen Plasma specimen Performing Organization Address [facility] Code Phon e Number [facility] DEPARTMENT OF PATHOLOGY [address] [place] [address] X [address] [place] [address] [facility] Thyroid stimulating hormone (04/29/2019 5:03 AM LANGUAGE SPECIALIST) Pathologist Sig nature TSH 0.50 0.27 - 4.20 uIU/mL [facility] Specimen Blood Performing Organization Address City/[facility]/ZIP [facility] Phon e Number [facility] DEPARTMENT OF PATHOLOGY [address] [place] [address] X [address] AND [facility] MEDICINE [address] [place] [address] [facility] T4, free (04/29/2019 5:03 AM LANGUAGE SPECIALIST) Pathologist Sig nature T4, free 1.2 0.9 - 1.7 ng/dL [facility] [place] [facility] Specimen Plasma specimen Performing Organization Address City/[facility]/ZIP Code Phon e Number [facility] DEPARTMENT OF PATHOLOGY [address] [place] [address] X [address] AND GENOMIC MEDICINE [address] X [facility] HOSPITAL Prealbumin level (04/29/2019 5:03 AM LANGUAGE SPECIALIST) Pathologist Sig nature Prealbumin 17 16 - 32 mg/dL [facility] Specimen Serum Performing Organization Address City/[facility]/ZIP Code Phon e Number [facility] DEPARTMENT OF PATHOLOGY AND [address] [place], [place] [address] [address] Phosphorus level (04/29/2019 5:03 AM LANGUAGE SPECIALIST) Pathologist Sig nature Phosphorus 3.5 2.4 - 4.5 mg/dL [facility] [place] [facility] Specimen Blood Performing Organization Address City/[facility]/ZIP Code Phon e Number [facility] DEPARTMENT OF PATHOLOGY [id number] [place] [address], [place] [address] [place] [address] H[place]ITAL B natriuretic peptide (04/29/2019 5:03 AM LANGUAGE SPECIALIST) Pathologist Sig nature BNP 47 0 - 100 pg/mL [facility] Specimen Blood Performing Organization Address City/[facility]/ZIP Code Phon e Number [facility] DEPARTMENT OF PATHOLOGY [id number] [place] [address], [place] [address] AND [facility] [id number] [place] [address], [place] [address] H[facility]PITAL Magnesium level (04/29/2019 5:03 AM LANGUAGE SPECIALIST) Pathologist Sig nature Magnesium 2.4 1.6 - 2.4 mg/dL [facility] [place] [facility] Specimen Blood Performing Organization Address City/[facility]/ZIP Code Phon e Number [facility] DEPARTMENT OF PATHOLOGY [address] [place] [address]. [place] [address] AND [facility] [id number] [place] [address], [place] [address] H[place]PITAL Lipase level (04/29/2019 5:03 AM LANGUAGE SPECIALIST) Pathologist Sig nature Lipase 31 13 - 60 U/L [facility] Specimen Blood Performing Organization Address City/[facility]/ZIP Code Phon e Number [facility] DEPARTMENT OF PATHOLOGY [id number] [place] [address] [address] AND [facility] [address] [place] [address]. [place] [address] HOSPITAL Hemoglobin A1c (04/29/2019 5:03 AM LANGUAGE SPECIALIST) Hemoglobin A1C 9.2 (H) 4.0 - 5.6 % [facility] Comment: [place] HbA1c cutoffs for diagnosing diabetes: [facility] 4.0% - 5.6% = normal 5.7% - 6.4% = increased risk for diabetes (prediabetes )9 >=6.5% = diabetes9 Goals for glycemic control (ADA 2016) < 7.0% Target for non adults with diabetes. More or less stringent targets may be appropriate for individual patients. <7.5% Target for Children and adolescents with type 1 diabetes. Specimen Blood Performing Organization Address City/[facility] Phon e Number [facility] DEPARTMENT OF PATHOLOGY [address] [place] [address] Creatine kinase, total (CPK) (04/29/2019 5:03 AM LANGUAGE SPECIALIST) Pathologist Sig nature Creatine kinase 115 39 - 308 U/L [facility] [place] AND [facility] Specimen Blood Performing Organization Address [facility] Phon e Number [facility] DEPARTMENT OF PATHOLOGY [address] [place] [address] X [facility] AND [address] X [facility] HOSPITAL Bilirubin direct (04/29/2019 5:03 AM LANGUAGE SPECIALIST) Pathologist Sig nature Bilirubin direct <0.2 0.0 - 0.3 mg/dL [facility] Specimen Blood Performing Organization Address [facility] Phon e Number [facility] DEPARTMENT OF PATHOLOGY [address] [place] [address] X [facility] AND [address] X [facility] HOSPITAL Amylase level (04/29/2019 5:03 AM LANGUAGE SPECIALIST) Pathologist Sig nature Amylase 19 13 - 73 U/L [facility] Specimen Blood Performing Organization Address [facility] Phon e Number [facility] DEPARTMENT OF PATHOLOGY [address] [place] [address] X [facility] AND [address] X [facility] HOSPITAL Lipid panel (04/29/2019 5:03 AM LANGUAGE SPECIALIST) Cholesterol 194 0 - 199 [place] mg/dL [facility] Triglycerides 107 0 - 149 [place] mg/dL [facility] HDL cholesterol 39 (L) 40 - 99,999 [place] mg/dL [facility] LDL cholesterol 144 (H) 0 - 99 mg/dL [facility] Lipid panel See below [place] interpretation Comment: [facility] Total Cholesterol (mg/dL) [facility] <200 Desirable 200-239 Borderline-high >=240 High Triglycerides (mg/dL) <150 Normal 150-199 Borderline-high 200-499 High >=500 Very high HDL Cholesterol (mg/dL) <40 Low (male) <50 Low (female) LDL Cholesterol (mg/dL) <100 Optimal 100-129 Near or above optimal 130-159 Borderline-high 160-189 High >=190 Very high Risk Catergories that modify LDL goals. Risk Catergories LDL goal (mg/d L) CHD and CHD risk equivalent <100 (10-year risk >20%) Multiple (2+) risk factors <130 (10-year risk =<20%) 0-1 risk factors <160 (<10-year risk) Defining levels of lipids in metabolic syndrome Triglycerides >=150 mg/dL HDL Cholesterol Men <40 mg /dL Women <50 mg/ dL Non-HDL cholesterol is a second target for therapy in persons with high triglycerides (>=200 mg/dL) Specimen Blood Performing Organization Address City/State/ZIP Code Phon e Number [facility] DEPARTMENT OF PATHOLOGY [address] [facility], [place] [address] AND GENOMIC MEDICINE [facility] [address] [facility] [place] [address] [facility] Comprehensive metabolic panel (04/29/2019 5:03 AM LANGUAGE SPECIALIST) Pathologist Sig nature Sodium 139 135 - 148 mEq/L [facility] Potassium 4.4 3.5 - 5.0 mEq/L [facility] Chloride 102 98 - 112 mEq/L [facility] CO2 25 24 - 31 mEq/L [facility] Anion gap 12@ANIO 7 - 15 mEq/L [facility] BUN 12 8 - 23 mg/dL [facility] Creatinine 0.85 0.70 - 1.20 [facility] mg/dL [facility] Glucose 280 (H) 65 - 99 mg/dL [facility] Calcium 9.1 8.8 - 10.2 mg/dL [facility] Protein 6.3 6.3 - 8.3 g/dL [facility] Albumin 3.7 3.5 - 5.0 g/dL [facility] A/G ratio 1.4 0.7 - 3.8 [facility] Alkaline phosphatase 99 40 - 129 U/L [facility] AST 12 10 - 50 U/L [facility] ALT 11 5 - 50 U/L [facility] Total bilirubin <0.2 0.2 - 1.2 mg/dL [facility] Specimen Blood Performing Organization Address City/State/ZIP Code Phon e Number [facility] DEPARTMENT OF PATHOLOGY [address] [facility] [address] AND GENOMIC MEDICINE [facility] [address] [facility] [place] [address] HOSPITAL after 01/13/2019 Insurance Payer Benefit Plan / Subscriber ID Effective Dates Phone Addre ss Type Group MEDICARE MEDICARE PART A [id number] 2015-Present [place], [place] Medicare AND B Advance Directives For more information, please contact: [phone] Type Date Recorded Patient Commission Associate Explanati on Advance Directives, Living Will and Medical Power of [employer]
--- OUTSIDE RECORDS SUMMARY | 2020-01-14 21:24 | XMS REPORT | Continuity of Care Document ---
:1950 Author Organization [facility] t Address [address] [place] [address] Care Team Providers Name Role Phone [place] DRAFTER ELECTRONIC Primary Care Physician Unavailable Berhane SCHWARTZ, Risa Attending Clinician BERHANE Admitting Clinician Unavailable Payers Payer Name Policy Type Policy Effective Date Expiration Date Sour ce Number MEDICAREMEDICARE PART [id number] 2015 [facility] AND 00:00:00 [facility] [id number] [address] [facility] [facility] Condition Condition Condition Status Onset Resolution Last Treating Co mments Source Name Details Category Date Date Treatment Clinician Date Type 2 Type 2 Problem Active [place] diabetes Diabetes 3-31 da mellitus Mellitus 00:00: [facility] Essential Essential Problem Active [place] hypertensi Hypertensi 3-31 da on on 00:00: [facility] TIA TIA Disease Active [place] (transient (transient 1-20 Me thodi ischemic ischemic 00:00: st attack) attack) 00 Allergies, Adverse Reactions, Alerts This patient has no known allergies or adverse reactions. Social History Social Habit Start Date Stop Date Quantity Comments Source History [facility] Meth odist Alcohol Std Drinks History [facility] Alcohol Binge Sex Assigned At [facility] ethodist Tobacco use and 2019-04-29 2019-04-29 Never used [facility] ethodist exposure 00:00:00 00:00:00 Alcohol intake 2019-04-29 2019-04-29 Current drinker [place] [facility]ai 00:00:00 00:00:00 of alcohol (finding) History [facility] 2019-04-29 2019-04-29 1 [place] [facility]ist Alcohol Frequency 00:00:00 00:00:00 Smoking Status Start Date Stop Date Source Former Smoker [place] [facility] Never smoker Juan núñez Medications Ordered Filled Start Stop Current Ordering Indication Dosage Frequency Signature Comments Components Source Medication Medication Date Date Medication? Clinician (SIG) Name Name aspirin 2020- No 81mg QD Take 1 Juan (ECOTRIN) 05-01 tablet (81 Met hodi 81 MG 00:00: 23:59 mg total) st enteric 00 :00 by mouth coated daily for tablet 30 days. aspirin 2020- No 81mg QD Take 1 Martinez (ECOTRIN) 05-01 tablet (81 Met hodi 81 MG 00:00: 00:00 mg total) st enteric 00 :00 by mouth coated daily for tablet 30 days. atorvastati 2020- No 40mg QD Take 1 Johan ston n (LIPITOR) 04-30 tablet (40 M ethodi 40 MG 00:00: 23:59 mg total) st tablet 00 :00 by mouth nightly for 30 days. atorvastati 2020- No 40mg QD Take 1 Johan ston n (LIPITOR) 04-30 tablet (40 M ethodi 40 MG 00:00: 00:00 mg total) st tablet 00 :00 by mouth nightly for 30 days. Jardiance Jardiance No Jardiance [place] 10 mg 10 mg 10 mg da tablet Take tablet Take tablet [facility] 1 tablet 1 tablet Take 1 al every every tablet Health morning for morning for every Outreac diabetes diabetes morning h for Program diabetes lisinopril lisinopril No lisinopril [place] 10 10 10 da mg-hydrochl mg-hydrochl mg-hydroch [facility] orothiazide orothiazide lorothiazi al 12.5 mg 12.5 mg de 12.5 mg Hea lth tablet Take tablet Take tablet Outreac 1 tablet 1 tablet Take 1 h every every tablet Program morning for morning for every blood blood morning pressure pressure for blood pressure metformin metformin No metformin [place] 1,000 mg 1,000 mg 1,000 mg da tablet Take tablet Take tablet [facility] 1 tablet 1 tablet Take 1 al twice a day twice a day tablet Health for for twice a Outreac diabetes diabetes day for h diabetes Program Vital Signs Vital Name Observation Time Observation Value Comments Source BP Diastolic 2019-07-08 00:00:00 84 mm[Hg] [place] [facility] Height 2019-07-08 00:00:00 73 [in_i] [place] [facility] BMI (Body Mass 2019-07-08 00:00:00 30.2 kg/m2 [place] [facility] [employer] Index) [facility] BP Systolic 2019-07-08 00:00:00 129 mm[Hg] [place] [facility] Body Weight 2019-07-08 00:00:00 228.8 [lb_av] [place] [facility] Systolic blood 2019-04-30 08:08:52 158 mm[Hg] Lexito n Bahai pressure Diastolic blood 2019-04-30 08:08:52 72 mm[Hg] Yumiko on Bahai pressure Heart rate 2019-04-30 08:08:52 64 /min Juan Floresist Body temperature 2019-04-30 08:08:52 36.22 Era Lexi walton Bahai Respiratory rate 2019-04-30 08:08:52 18 /min Lexi walton Bahai Oxygen saturation in 2019-04-30 08:08:52 98 /min Juan Yepez Arterial blood by Pulse oximetry Body height 2019-04-29 03:01:00 185.4 cm Juan Yepez Body weight 2019-04-29 03:01:00 106.641 kg Juan Floresist BMI 2019-04-29 03:01:00 31.02 kg/m2 Juan Yepez Procedures Procedure Date / Time Performing Clinician Source Performed POC GLUCOSE 2019-04-30 11:14:00 Gisela Last Pa [facility]odist POC GLUCOSE 2019-04-30 08:04:00 Gisela Last Pa thodist VITAMIN B1 LEVEL, WHOLE 2019-04-30 04:15:00 Darien Nair Bahai BLOOD POC GLUCOSE 2019-04-29 21:23:00 Gisela Last Pa thodist MRI BRAIN W WO CONTRAST 2019-04-29 19:40:10 Gisela Last Ho uston Bahai MRA NECK WO CONTRAST 2019-04-29 19:19:30 Gisela Last on Bahai MRA HEAD WO CONTRAST 2019-04-29 19:19:19 Gisela Last on Bahai POC GLUCOSE 2019-04-29 16:10:00 Gisela Last Me thodist URINE DRUGS OF ABUSE 2019-04-29 15:30:00 Gisela Last on Bahai SCREEN TTE COMPLETE, WO CONTRAST, 2019-04-29 14:30:00 Darien Nair Bahai W AGITATED SALINE ([id number]) VITAMIN B12 LEVEL 2019-04-29 13:54:00 Darien Nair Me thodist POC GLUCOSE 2019-04-29 11:49:00 Gisela Last Pa thodist POC GLUCOSE 2019-04-29 07:59:00 Gisela Last Pa thodist HC COMPLETE BLD COUNT 2019-04-29 05:03:00 Gisela Last Bahai W/AUTO DIFF PROTHROMBIN TIME WITH INR 2019-04-29 05:03:00 Gisela Last Bahai PARTIAL THROMBOPLASTIN 2019-04-29 05:03:00 Gisela Last Bahai TIME (PTT) URIC ACID LEVEL 2019-04-29 05:03:00 Gisela Last Pa thodist T4, FREE 2019-04-29 05:03:00 Gisela Last Pa thodist THYROID STIMULATING 2019-04-29 05:03:00 Gisela Last n Bahai HORMONE PREALBUMIN LEVEL 2019-04-29 05:03:00 Gisela Last M ethodist PHOSPHORUS LEVEL 2019-04-29 05:03:00 Gisela Last M ethodist MAGNESIUM LEVEL 2019-04-29 05:03:00 Gisela Last Pa thodist LIPID PANEL 2019-04-29 05:03:00 Gisela Last Pa thodist LIPASE LEVEL 2019-04-29 05:03:00 Gisela Last Pa thodist HEMOGLOBIN A1C 2019-04-29 05:03:00 Gisela Last Pa thodist COMPREHENSIVE METABOLIC 2019-04-29 05:03:00 Gisela Last Bahai PANEL CREATINE KINASE, TOTAL 2019-04-29 05:03:00 Gisela Last Bahai (CPK) B NATRIURETIC PEPTIDE 2019-04-29 05:03:00 Gisela Lastjean pierre Elliott ton Bahai AMYLASE LEVEL 2019-04-29 05:03:00 Gisela Last Pa thodist BILIRUBIN DIRECT 2019-04-29 05:03:00 Gisela Last M ethodist ESTIMATED GFR 2019-04-29 05:03:00 Gisela Last Pa thodist Plan of Care Planned Activity Planned Date Details Comments Source Future Scheduled 2019-11-08 INFLUENZA VACCINE Debra aguero Bahai Test 00:00:00 [code = INFLUENZA VACCINE] Future Scheduled 2015-09-01 65+ PNEUMOCOCCAL [place] Bahai Test 00:00:00 VACCINE (1 of 1 - PPSV23) [code = 65+ PNEUMOCOCCAL VACCINE (1 of 1 - PPSV23)] Future Scheduled 2000 COLONOSCOPY SCREENING [facility] Bahai Test 00:00:00 [code = COLONOSCOPY SCREENING] Future Scheduled 2000 [facility] 00:[facility]:00 [code = SHINGLES VACCINES (#1)] Encounters Start End Encounter Admission Attending Care Care Encounter Source Date/Time Date/Time Type Type Clinicians Facility Department ID 2019-07-08 2019-07-08 Cory MCGHEE [place] - [id number] 1 [place] 00:00:00 00:00:00 MANJIT Munoz: [facility] [address] [facility] LIT[facility]Y [facility] [id number] Toi barrios , Ph. 2019-04-29 2019-04-30 Outpatient [facility] [id number] [place] 00:00:00 00:00:[address] Results Test Description Test Time Test Comments Results Result Comments Source Vitamin B1 level, whole blood 2019-05-04 08:15:49 Test Item Value Reference Range Interpretation Comme nts Vitamin B1 (test code = 229 nmol/L 70-180 H INTE RPRETIVE INFORMATION: Vitamin B1, 99043-7) Whole BloodThis assay measures the concentration o f thiamine diphosphate (TDP), the prim lloyd active form of vitamin B1. Ralph roximately 90 percent of vitamin B1 pres ent in whole blood is TDP. Thiamine a nd thiamine monophosphate, which comprise the remaining 10 pe rcent, are not measured.Test d eveloped and characteristics determined by [employer]. S ee Compliance Statement B: [employer]/ CSPerformed by [employer],[address] [place] [address] [phone] 787www[employer], Mandeep Benitez MD, Lab. Director Lab Interpretation (test Abnormal code = 05718-9) [place] [facility]POC [id number] 11:25:54 Test Item Value Reference Range Interpretation Comments POC glucose (test code 163 mg/dL 65-99 H Opera tor Name: = 41317-2) Karen Glaser evice ID: [id number] able: RN Notified Lab Interpretation Abnormal (test code = 43516-7) [place] MethodistEchocardiogram complete w contrast and 3D if [id number] 22:29:57 Test Item Value Reference Range Interpretation Comments Ao Root Diameter (test 3.61 cm code = 5028372796) AoV Area, Vmax (test 1.99 cm2 code = 3605329610) AoV Area, VTI (test 1.99 cm2 code = 4010859231) AoV Mean PG (test code 5.39 mmHg = 4256353084) AoV Peak PG (test code 9.05 mmHg = 4213147419) AoV Vmax (test code = 1.50 m/s 3158498623) AoV VTI (test code = 0.31 m 7039057645) IVS,d (test code = 0.89 cm 3282911722) IVS/LVPW,2D (test code 0.95 = 5503031121) Left Atrium Dimension 2.66 cm Anterior (test code = 9029126544) LA Area d A4C (test 16.07 cm2 code = 9333475842) LV,d (test code = 5.83 cm 1668780068) LV EF,2D (test code = 57.87 % 0461110909) LV,s (test code = 4.37 cm 7573531421) LVOT area (test code = 3.49 cm2 4918880276) LVOT Diam,S (test code 2.11 cm = 3709178277) LVOT Vmax (test code = 0.86 m/s 1558899696) LVOT VTI (test code = 0.18 m 2119832175) LVPWD,d (test code = 0.94 cm 0848797485) PV Pk Grad (test code = 7.36 mmHg 7104380262) PV VMAX (test code = 1.36 m/s 2182345850) TR Vpeak (test code = 1.64 mm/s 3673125141) MV E A ratio (test code 1.32 = 7733693422) TR pk grad (test code = 10.04 mmHg 8298675160) E wave decelartion time 313.92 msec (test code = 3051134580) MV Peak A Rohith (test 0.65 m/s code = 2953021060) MV valve area p 1/2 2.42 cm2 method (test code = 1350705566) MV Peak E Rohith (test 0.86 m/s code = 9457923913) MV stenosis pressure 91.04 ms 1/2 time (test code = 5348669705) AV LVOT peak gradient 2.93 mmHg (test code = 8663385288) Ascending aorta (test 3.11 cm code = 8957354343) Ao Root Diameter (test 3.61 cm code = 2721274597) MV mean gradient (test 1.40 mmHg code = 8739414111) LV SYS VOL (test code = 86.47 ml 6385995072) LV ROJAS VOL (test code 168.86 ml = 5946839595) LV SV Teich 2D (test 82.39 ml code = 0025408676) LV Vol s Teich PSAX 86.47 ml (test code = 5694317565) MR peak grad (test code 3.33 mmHg = 8755761844) MV Vmax (test code = 0.91 m 9556729212) MV VTI Tips (test code 0.29 m = 9273506613) AoV Vmn (test code = 1.11 7998889353) LV FS Teich 2D (test 25.04 code = 6044905792) MV AE ratio (test code 0.76 = 3843688011) LV FS Cube 2D (test 25.04 code = 0438509447) LVOT Vmn (test code = 0.56 8830545185) Aov area Vmn (test code 1.77 cm2 = 7871150270) LA Vol d MOD A4C (test 42.16 ml code = 1429658070) LVOT mean grad (test 1.45 mmHg code = 8861089342) MAX Pred HR (test code 151.34 = 0781392139) 85 of MPHR (test code = 128.64 4656438340) Calc MPHR (test code = 151.34 bpm 2639962999) LV SV Cube 2D (test 114.96 ml code = 3808150930) LV vol d cube 2D (test 198.64 ml code = 1253229168) LV vol s cube 2D (test 83.68 ml code = 2324220554) MV Decel slope (test 2.73 m/s2 code = 1476773479) Pred Exer Dur R1 (test 7.38 code = 7353932908) Pred METS R1 (test code 7.70 = 8200425389) Velocity Ratio (V1/V2) 0.57 m/s (test code = 4689) EF (test code = 48.79 % 5978217713) E/A ratio (test code = 1.32 9606345091) JOSEPH (test code = JOSEPH) Left ventricular systolic function is normal. Left Ventricular ejection fraction is 55 - 60%. Spectral Doppler shows impaired relaxation pattern of left ventricular diastolic filling. Normal left ventricular wall thickness and regional wall motion. Normal right ventricular size, wall thickness and global function LA size is normal Trace tricuspid valve regurgitation There is moderate sclerosis of the aortic valve leaflets. No pericardial effusion seen Juan Fong Neck Wo [id number] 19:54:36Hm Interface, Radiology Results 04/29/2019 7:57 PM CSTEXAMINATION: MRA NECK WO CONTRASTC LINICAL HISTORY: EVAL FOR STENOSISCOMPARISON: None.IMAGING DEVICE: 3.0 Temitope MR. 3-D reconstructions were processed off-lineTECHNIQUE: Multiplanar and multisequence MRA imaging of the neck obtained.CONTRAST: No IV contrast administered.FINDINGS:RIGHT:*COMMON CAROTID ARTERY: Normal, no proximal flow- limiting stenosis, occlusion, dissection, aneurysms, pseudoaneurysms or vascular malformations.*CAROTID BIFURCATION AND ICA: Normal, no proximal flow-limiting stenosis, occlusion, dissection, aneurysms, pseudoaneurysms or vascular malformations.*VERTEBRAL ARTERY: Normal, no proximal flow-limiting stenosis, occlusion, dissection, aneurysms, pseudoaneurysms or vascular malformations.LEFT:*COMMON CAROTID ARTERY: Normal, no proximal flow-limiting stenosis, occlusion, dissection, aneurysms, pseudoaneurysms or vascular malformations.*CAROTID BIFURCATION AND ICA: Normal, no proximal flow-limiting stenosis, occlusion, dissection, aneurysms, pseudoaneurysms or vascular malformations.*VERTEBRAL ARTERY: Normal, no proximal flow-limiting stenosis, occlusion, dissection, aneurysms, pseudoaneurysms or vascular malformations.OTHER: NoneIMPRESSION:. No evidence of carotid or vertebral flow- limiting stenosis, occlusion, aneurysms or AVMsCHILDREN'S HOSP[facility]-[id number] Bahai MRI Brain W Wo [id number] 19:53:28Hm Interface, Radiology Results 04/29/2019 7:56 PM CSTEXAMINATION: MRI BRAIN W WO CONTRASTCLINICAL HISTORY: EVAL FOR STROKECOMPARISON: None.IMAGING DEVICE: 3.0 Temitope MR. 3-D reconstructions were processed off-lineTECHNIQUE: Multiplanar and multisequence MRI imaging of the brain obtained.CONTRAST: No IV contrast administered.FINDINGS:CEREBRUM:*No evident edema, hemorrhage, mass, midline shift or acute infarction*No evidence of inappropriate atrophy.CEREBELLUM: *No evident edema, hemorrhage, mass, midline shift or acute infarction*No evidence of inappropriate atrophy.BRAINSTEM: *No evident edema, hemorrhage, mass, midline shift or acute infarction*No evidence of inappropriate atrophy.CSF SPACES: *Ventricles, cisterns, and sulci are appropriate for age.*No hydrocephalus, subarachnoid hemorrhage, or mass.VASCULAR: *Limited assessment with no evident abnormalities of [place] and dural sinuses. SKULL: *No focal lesions, mass, displaced fractures or other visible lesion.SINUSES: *Limited views demonstrate no mass, significant mucosal thickening or fluid.ORBITS: *Limited views shows no focal lesion fracture or other visible lesion.OTHER: *Moderate mucosal thickening seen in the left mastoid air cells and middle ear.IMPRESSION:1. Exam shows no evidence of acute intracranial abnormalities2. Moderate mucosal thickening seen in the left mastoid air cells and middle ear. Correlate clinically for left otomastoiditisCHILDREN'S HOSPITAL OF [facility]-[id number] MethodistMRA Head Wo [id number] 19:35:45Hm Interface, Radiology Results 04/29/2019 7:38 PM CSTEXAMINATION: MRA HEAD WO CONTRASTCLINICAL HISTORY: EVAL FOR STENOSISCOMPARISON: None.IMAGING DEVICE: 3.0 Temitope MR. 3-D reconstructions were processed off-lineTECHNIQUE: Multiplanar and multisequence MRA imaging of the brain obtained.CONTRAST: No IV contrast administered.FINDINGS:RIGHT:ICA: No evident proximal flow-limiting stenosis, occlusion, dissection, aneurysms, or AVM.CRYSTAL: No evident proximal flow-limiting stenosis, occlusion, dissection, aneurysms, or AVM.MCA: No evident proximal flow-limiting stenosis, occlusion, dissection, aneurysms, or AVM.HARP ACTION ASSEMBLER: No evident proximal flow-limiting stenosis, occlusion, dissection, aneurysms, or AVM.VERTEBRAL ARTERY: No evident proximal flow-limiting stenosis, occlusion, dissection, aneurysms, or AVM.LEFT:ICA: No evident proximal flow-limiting stenosis, occlusion, dissection, aneurysms, or AVM.CRYSTAL: No evident proximal flow-limiting stenosis, occlusion, dissection, aneurysms, or AVM.MCA: No evident proximal flow-limiting stenosis, occlusion, dissection, aneurysms, or AVM.HARP ACTION ASSEMBLER: No evident proximal flow-limiting stenosis, occlusion, dissection, aneurysms, or AVM.VERTEBRAL ARTERY: No evident proximal flow-limiting stenosis, occlusion, dissection, aneurysms, or AVM.BASILAR ARTERY: No evident proximal flow-limiting stenosis, occlusion, dissection, aneurysms, or AVM.OTHER: NoneIMPRESSION: Exam shows no evidence of proximal intracranial arterial flow-limiting stenosis, occlusion, aneurysm orAVROCHESTER REGIONAL HEALTH-[id number] Medical CenterVitamin B12 [id number] 18:50:31 Test Item Value Reference Range Interpretation Comments Vitamin B12 (test 355 pg/mL 211-946 Significan t overlap code = 2132-9) exists betwee n normal and deficiency states.However, most patients with deficiencies wi ll have Serum B12 <2 00 pg/mL. Martinez MethodistUrine drugs of abuse [id number] 16:27:11 Test Item Value Reference Interpretation Comments Range Amphetamine screen, Negative urine (test code = 3349-8) Barbiturate screen, Negative urine (test code = 3377-9) Benzodiazepine Negative screen, urine (test code = 3390-2) Cocaine screen, Negative urine (test code = 3397-7) Methadone Negative metabolite (EDDP), urine (test code = 13723-8) Opiates screen, Negative urine (test code = 3879-4) Phencyclidine Negative screen, urine (test code = 3936-2) Tricyclic screen, Negative urine (test code = 20950-1) Cannabinoid screen, Positive A Drug scr een minimum urine (test code = concentra tion of 3427-2) detectabilityAm phetamines 1000 ng/mLBarbiturat es 200 ng/mLBe nzodiazepines 300 ng/mLCocaine 300 ng/mLMethadone 300 ng/mLOp iates 300 ng/mLPhencyclid ine 25 ng/mLCa nnabinoids 50 ng/mLTricyclics 1000 ng/mLRe sults are from screening tests and should only be used fo r medical evaluation. Abhinav bella testing for legal purposes requires definitive (or confirmatory) testing methods , which are available upon request. Contact the lab oratory if definitive test ing is required. Lab Interpretation Abnormal (test code = 39610-9) Juan MethodistPrealbumin [id number] 12:55:47 Test Item Value Reference Range Interpretation Comments Prealbumin (test code = 6793-4) 17 mg/dL 16-32 Martinez MethodistEstimated [id number] 12:29:39 Test Item Value Reference Range Interpretation Comments Estimated GFR (test >=90 mL/min/1.73 m2 [facility] code = 5488) InterpretationG 1 >=90 Normal or highG2 60-89 Mildly klvwqwvcrW7u 45-59 Mildly to mode rately ewfctpnlaC3f 30-44 Moderately to severely decreasedG4 15-29 Severely decre asedG5 <15 Kidn ey failureThe eGFR was calculated uslouann g the Chronic Kidney Disease Epidemiology Co llaboration (CKD-EPI) equat ion. Interpretation is based on recommendations of the National Kidney Foundation-Kidn ey Disease Outcomes Qualit y Initiative (NKF-KDOQI) pub lished in 2013.Corrected result; previously repo rted as 89 on 04/29/2019 a t 06:02 by I/AUT Juan MethodistThyroid stimulating [id number] 06:06:16 Test Item Value Reference Range Interpretation Comments TSH (test code = 3016-3) 0.50 0.27- 4.20 uIU/mL Juan MethodistT4, [id number] 06:05:25 Test Item Value Reference Range Interpretation Comments T4, free (test code = 3024-7) 1.2 ng/dL 0.9-1.7 Juan MethodistB natriuretic [id number] 06:04:40 Test Item Value Reference Range Interpretation Comments BNP (test code = 05850-1) 47 pg/mL 0-100 Juan MethodistComprehensive metabolic [id number] 06:02:41 Test Item Value Reference Range Interpretation Comments Sodium (test code = 2951-2) 139 135- 148 mEq/L Potassium (test code = 2823-3) 4.4 3.5- 5.0 mEq/L Chloride (test code = 2075-0) 102 98- 112 mEq/L CO2 (test code = 2027-9) 25 24- 31 mEq/L Anion gap (test code = 13365-2) 12@ANIO 7- 15 mEq/L BUN (test code = 3094-0) 12 mg/dL 8-23 Creatinine (test code = 2160-0) 0.85 mg/dL 0.7-1.2 Glucose (test code = 2345-7) 280 mg/dL 65-99 H Calcium (test code = 62581-6) 9.1 mg/dL 8.8-10.2 Protein (test code = 2885-2) 6.3 g/dL 6.3-8.3 Albumin (test code = 1751-7) 3.7 g/dL 3.5-5 A/G ratio (test code = 1759-0) 1.4 0.7-3.8 Alkaline phosphatase (test code = 99 U/L 40-129 6768-6) AST (test code = 1920-8) 12 U/L 10-50 ALT (test code = 1742-6) 11 U/L 5-50 Total bilirubin (test code = <0.2 0.2-1.2 1974-05) Lab Interpretation (test code = Abnormal 89855-5) [place] MethodistLipid [id number] 06:02:41 Test Item Value Reference Interpretation Comments Range Cholesterol (test 194 mg/dL 0-199 code = 2093-3) Triglycerides (test 107 mg/dL 0-149 code = 2571-8) HDL cholesterol 39 mg/dL 40-66459 L (test code = 2085-9) LDL cholesterol 144 mg/dL 0-99 H (test code = 2089-1) Lipid panel See below Total Cholester ol (mg/dL) interpretation (test < 200 code = 70594-3) Desirable 200-239 Borderline -high >=240 Hi gh Triglyceri zoraida (mg/dL) <150 No rmal 150-199 Borderline-high 200-499 High >=500 Very high HDL Choles terol (mg/dL) <40 Low (male) < 50 Low (female) L DL Cholesterol (mg /dL) <100 Optimal 1 00-129 Near or above o ptimal 130-159 Borderline-high 160-189 High >=190 Very high Risk Cat ergories that modify LDL goals.Risk Catergories LDL goal (mg/dL )CHD and CHD risk equiva lent <100 (10-year risk >20%)Multiple ( 2+) risk factors < 130 (10-year risk = <20%)0-1 risk factors <160 (<10-ye ar risk) Defining levels of lipids in metabolic syndromeTriglyc erides > =150 mg/dLHDL Choles terol Men <40 mg/dL Women <50 mg/dL Non-HDL cholest davian is a second target f or therapy in personswith high triglycerides ( >=200 mg/dL) Lab Interpretation Abnormal (test code = 64620-9) [place] MethodistAmylase [id number] 06:02:41 Test Item Value Reference Range Interpretation Comments Amylase (test code = 1798-8) 19 U/L 13-73 [place] MethodistCreatine kinase, total (CPK)2019-04-29 06:02:41 Test Item Value Reference Range Interpretation Comments Creatine kinase (test code = 2157-6) 115 U/L 39-308 [place] MethodistLipase [id number] 06:02:41 Test Item Value Reference Range Interpretation Comments Lipase (test code = 3040-3) 31 U/L 13-60 [place] MethodistMagnesium [id number] 06:02:41 Test Item Value Reference Range Interpretation Comments Magnesium (test code = 01375-5) 2.4 mg/dL 1.6-2.4 Martinez MethodistPhosphorus [id number] 06:02:41 Test Item Value Reference Range Interpretation Comments Phosphorus (test code = 2777-1) 3.5 mg/dL 2.4-4.5 Martinez MethodistBilirubin [id number] 06:02:40 Test Item Value Reference Range Interpretation Comments Bilirubin direct (test code = 1968-7) <0.2 0-0.3 [place] MethodistUric acid [id number] 06:00:00 Test Item Value Reference Range Interpretation Comments Uric acid (test code = 3084-1) 5.4 mg/dL 3.4-7 [place] MethodistHemoglobin [id number] 05:55:46 Test Item Value Reference Range Interpretation Comments Hemoglobin A1C (test 9.2 % 4-5.6 H HbA1c c utoffs for code = 38706-8) diagnosing diabetes:4.0% - 5.6% = normal5.7% - 6.4% = increased risk for diabetes (prediabetes)9> =6.5% = [id number] s for glycemic contro l (ADA 2016)< 7.0% Ta rget for non adults with morteza betes. More or less stringent targe ts may be appropriate for individual ifeanyi ents. <7.5% Target for Children and adolescents wit h type 1 diabetes. Lab Interpretation (test Abnormal code = 34679-5) [place] MethodistPartial thromboplastin time, [id number] 05:33:40 Test Item Value Reference Range Interpretation Comments PTT (test code = 30.4 23.0- 36.0 sec PTT thera peutic range for 3173-2) unfractionated heparin is61.0-112.0 se conds which corresponds to Anti-Xa0.3-0.7 U/ml. [place] MethodistProthrombin time with [id number] 05:32:52 Test Item Value Reference Range Interpretation Comments Prothrombin time (test 13.8 11.5- 14.5 sec code = 5902-2) INR (test code = 1.1 The Interna tional 83225-1) Normalized Rati o (INR) is a therapeutic m onitoring tool for patien ts who are stable on oral anticoagulant t herapy. An INR of 2.0-3.0 is suggested for d eep vein thrombosis/pulm onary embolism. Juan YepezCB with platelet and [id number] 05:26:24 Test Item Value Reference Range Interpretation Comments WBC (test code = 78798-9) 10.7 4.5- 11.0 k/uL RBC (test code = 71937-1) 5.52 m/uL 4.4-6 HGB (test code = 718-7) 12.4 g/dL 14-18 L HCT (test code = 4544-3) 39.2 % 41-51 L MCV (test code = 787-2) 71.0 fL 82-100 L MCH (test code = 785-6) 22.5 pg 27-34 L MCHC (test code = 786-4) 31.6 g/dL 31-37 RDW - SD (test code = 67519-3) 36.9 fL 37-55 L MPV (test code = 41194-5) 9.9 fL 6.9-11 Platelet count (test code = 256 K/uL 150-400 61808-1) Nucleated RBC (test code = 85884-7) 0.00 /100 WBC Neutrophils (test code = 42434-8) 62.2 % 39-69 Lymphocytes (test code = 84600-8) 29.6 % 25-45 Monocytes (test code = 38122-5) 6.0 % 0-10 Eosinophils (test code = 64187-3) 1.5 % 0-5 Basophils (test code = 77124-1) 0.4 % 0-1 Immature granulocytes (test code = 0.3 % 0-1 53785-4) Lab Interpretation (test code = Abnormal 64965-5) Juan Yepez
== END 2020-01-09 22:29 | disposition home or self-care (01) ==
LOC: ER 18:48
DX: E87.6 Hypokalemia (principal); E11.9 Type 2 diabetes mellitus without complications; F55.8 Abuse of other non-psychoactive substances; R55 Syncope and collapse; I10 Essential (primary) hypertension; F17.210 Nicotine dependence, cigarettes, uncomplicated
CPT/HCPCS: 96365; 93005; 85025; 80048; 36415; 80320; 83735; 80329 ×2; 85610; 80076; 80307 ×8; 85730; 81003; 84484; 83880; 70450; 71045; 99285; J3411; J7030